=== PATIENT | female | born 1980 | race Two or more races ===

== ENCOUNTER 2016-06-18 09:58 | Emergency (ER) | payer SELFPAY ==
--- NOTE | ~2016-06-18 | ER ---
PATIENT'S NAME: KADE LOZANO [facility] AGE: 35 Y [address] ROOM: [place] [id number] LOCATION: [facility] ADMIT DATE: 06/18/2016 ER/Outpatient Report DISCHARGE DATE: 06/18/2016 FAMILY PHYSICIAN: Kady Ortez APRN ATTENDING PHYSICIAN: Heladio Henderson CHIEF COMPLAINT/HISTORY OF PRESENT ILLNESS: The patient states that she has had frequency, urgency, burning, and suprapubic discomfort for the last few days. She normally doctors with Kady Ortez. She has taken some Tylenol for this, but it has not improved. It started on Thursday. She did take some [id number] bladder medication but that does not seem to be helping. She does have a history of being hospitalized with what sounds like sepsis secondary to urinary tract infection several years ago. She is on multiple psychiatric medications, otherwise. PAST MEDICAL HISTORY: Documented on the record and reviewed by me. SOCIAL HISTORY: Documented on the record and reviewed by me. MEDICATIONS: Documented on the record and reviewed by me. ALLERGIES: DOCUMENTED ON THE RECORD AND REVIEWED BY ME. REVIEW OF SYSTEMS: All systems were reviewed and negative as noted in the HPI. PHYSICAL EXAMINATION: VITAL SIGNS: On arrival, blood pressure is 96/47, pulse is 64, respiratory rate is 20, temperature 98.1, SpO2 is 98% on room air. Pain is rated at 5/10. GENERAL: Age-appropriate female. No obvious pain or distress, sitting upright on the exam chair. NEUROLOGIC: Awake and alert. GCS appears to be 15. No obvious abnormalities on exam. HEENT: Normocephalic atraumatic. Eyes are PERRL. Oropharynx is clear. NECK: Supple. Trachea is midline. HEART: Regular rate and rhythm. LUNGS: Even, unlabored respirations. Clear to auscultation. ABDOMEN: Soft, nontender, except for very mild suprapubic tenderness with no rebound, guarding, or masses. BACK: Nontender to palpation throughout with right greater than left CVA tenderness. PATIENT'S NAME: KADE LOZANO [facility] AGE: 35 Y [address] ROOM: [place] [address] LOCATION: [facility] ADMIT DATE: 06/18/2016 ER/Outpatient Report DISCHARGE DATE: 06/18/2016 FAMILY PHYSICIAN: Kady Ortez APRN ATTENDING PHYSICIAN: Heladio Henderson EXTREMITIES: Warm and well perfused. No obvious abnormalities. LABORATORY DATA AND X-RAYS: No imaging was obtained for this patient. Labs: Initial urinalysis clean-catch did appear to be contaminated but concerning for possible infection. Repeat was much more reassuring. CBC is unremarkable. Lactate 0.6. The procalcitonin is below threshold. CMS is unremarkable. CRP is below threshold. IMPRESSION: Possible urinary tract infection, possible pyelonephritis. EMERGENCY DEPARTMENT COURSE: The patient was seen and evaluated. The patient's vital signs and clinical course not consistent with pyelonephritis. Physical exam more consistent with pyelonephritis. UTI is likely. Culture and sensitivity were obtained on that. Based on prior culture data, we gave the patient a dose of ciprofloxacin. We will have her continue same for one week at home. This presentation is not consistent with intra-abdominal surgical source of pain. Not consistent with ovarian torsion or other concerning presentation. She will be given some Pyridium for spasms, and she will be discharged in good condition with instructions to follow up in 1 week for re-evaluation. All questions answered, and the patient was discharged. MD MARLENI ANDERSON/rio /[id number] d: 06/19/16699 t: 06/19/16 0945, OUTPATIENT REPORT
[2016-06-18 10:41] LABS: BILIRUBIN URINE NEGATIVE (NEGATIVE); BLOOD URINE 25 /UL (NEGATIVE); COLOR URINE YELLOW (YELLOW); GLUCOSE URINE NEGATIVE (NEGATIVE); KETONE URINE NEGATIVE (NEGATIVE); LEUKOCYTES URINE 100 /UL (NEGATIVE); NITRITE URINE NEGATIVE (NEGATIVE); PROTEIN URINE NEGATIVE (NEGATIVE); TURBIDITY URINE CLEAR (CLEAR); UROBILINOGEN URINE NORMAL (NORMAL)
[2016-06-18 10:51] LABS: WBC URINE 20-50 #/HPF (NEGATIVE)
[2016-06-18 10:52] LABS: BACTERIA URINE MODERATE (NEGATIVE); MUCUS URINE 1+ (NEGATIVE); RBC URINE 0-2 #/HPF (NEGATIVE)
[2016-06-18 11:21] LABS: BILIRUBIN URINE NEGATIVE (NEGATIVE); BLOOD URINE 10 /UL (NEGATIVE); COLOR URINE STRAW (YELLOW); GLUCOSE URINE NEGATIVE (NEGATIVE); KETONE URINE NEGATIVE (NEGATIVE); LEUKOCYTES URINE 25 /UL (NEGATIVE); NITRITE URINE NEGATIVE (NEGATIVE); PROTEIN URINE NEGATIVE (NEGATIVE); SPEC GRAVITY URINE 1.015 (1.003-1.035); TURBIDITY URINE CLEAR (CLEAR); UROBILINOGEN URINE NORMAL (NORMAL)
[2016-06-18 11:22] LABS: BASOPHIL % 0.4 %; EOSINOPHIL # 0.1 K/uL (0.0-0.5); EOSINOPHIL % 1.1 %; HEMATOCRIT 36.6 % (33.0-46.0); HEMOGLOBIN 12.1 g/dL (11.0-15.0); IMMATURE GRANULOCYTE % 0.2 %; LYMPHOCYTE # 1.7 K/uL (0.8-4.0); LYMPHOCYTE % 20.3 %; MCH 31.1 pg (27.0-34.0); MCHC 33.1 gm/dL (32.0-36.5); MCV 94.1 fl (83.0-98.0); MONOCYTE # 0.3 K/uL (0.0-1.0); MONOCYTE % 3.7 %; MPV 9.7 fl (9.4-12.4); NEUTROPHIL # (ANC) 6.1 K/uL (1.8-7.8); NEUTROPHIL % 74.3 %; NRBC % 0 /100WBC (0-0.00); PLATELET COUNT 245 K/uL (150-450); RBC 3.89 M/uL (3.50-5.50); RDW-CV 12.4 % (11.9-14.6); WBC 8.3 K/uL (4.0-11.0)
[2016-06-18 11:29] LABS: RBC URINE RARE #/HPF (NEGATIVE)
[2016-06-18 11:30] LABS: BACTERIA URINE NEGATIVE (NEGATIVE); EPITHELIAL URINE RARE #/HPF (NEGATIVE)
[2016-06-18 11:40] LABS: ALBUMIN 3.8 gm/dL (3.5-5.0); ALK PHOS 52 IU/L (33-138); ALT 15 IU/L (12-78); ANION GAP 9.1 (10.0-19.0); AST 12 IU/L (10-40); BLOOD UREA NITROGEN 13 mg/dL (6-24); CALCIUM 8.8 mg/dL (8.5-10.5); CHLORIDE 106 mMol/L (96-110); CO2 29 mMol/L (22-32); CREATININE 0.7 mg/dL (0.5-1.1); ESTIMATED GFR (MDRD EQUATION) > 60; POTASSIUM 4.1 mMol/L (3.7-5.1); SODIUM 140 mMol/L (135-145); TOTAL BILIRUBIN 0.2 mg/dL (0.0-1.5); TOTAL PROTEIN 7.7 g/dL (6.0-8.4)
== END 2016-06-18 12:51 | disposition disaster alternative care site (69) ==
LOC: GMED 09:58
PROVIDERS: Emergency Medicine
DX: R35.0 Frequency of micturition (principal); R39.15 Urgency of urination; R10.30 Lower abdominal pain, unspecified